=== PATIENT | female | born 1960 | race Caucasian/White ===

== ENCOUNTER 2019-07-15 14:27 | Outpatient (RCR) | payer OTHER, SELFPAY | END 2019-07-27 00:01 | LOC: CT 14:27 | PROVIDERS: Family Provider Family Medicine; Visit Provider Nurse Practitioner Family | DX: M81.0 Age-related osteoporosis without current pathological fracture (principal); J43.2 Centrilobular emphysema | CPT/HCPCS: 71250; 77080 ==

== ENCOUNTER 2020-01-06 14:46 | Outpatient (CLI) | payer OTHER, SELFPAY ==
--- NOTE | 2020-01-06 14:52 | XR_ITS ---
WS: [id number] HIP WITH PELVIS LEFT TECHNIQUE: 3 views of the left hip with pelvis CLINICAL INFORMATION: RADICULOPATHY LUMBAR REGION COMPARISON: December 18, 2018 FINDINGS: Moderate degenerative arthritis left hip with joint space narrowing. No acute fractures. Pelvic phleb oliths. XR/XR hip LT 2-3V wo/w pel* [id number] IMPRESSION: Mild to moderate degenerative arthritis left hip. No acute fractures.
== END 2020-01-06 14:47 | disposition home or self-care (01) ==
LOC: RADWPI 14:49
PROVIDERS: Family Provider Nurse Practitioner Family; PCP Nurse Practitioner Family; Visit Provider Nurse Practitioner Family
DX: M54.16 Radiculopathy, lumbar region (principal); M16.12 Unilateral primary osteoarthritis, left hip
CPT/HCPCS: 73502

== ENCOUNTER → 2020-04-07 11:13 | Outpatient (BNVA) | payer OTHER, SELFPAY | PROVIDERS: Family Provider Nurse Practitioner Family; PCP Nurse Practitioner Family; Visit Provider Nurse Practitioner Family | DX: M25.462 Effusion, left knee (principal); M25.562 Pain in left knee | CPT/HCPCS: 73562 ==

== ENCOUNTER → 2020-11-10 10:49 | Outpatient (BNVA) | payer OTHER, SELFPAY | PROVIDERS: Family Provider Nurse Practitioner Family; PCP Nurse Practitioner Family; Visit Provider Orthopaedic Surgery | DX: Z96.649 Presence of unspecified artificial hip joint (principal); M25.552 Pain in left hip | CPT/HCPCS: 73502 ==

== ENCOUNTER → 2020-11-24 09:37 | Outpatient (BNVA) | payer OTHER, SELFPAY | PROVIDERS: Family Provider Nurse Practitioner Family; PCP Nurse Practitioner Family; Visit Provider Orthopaedic Surgery | DX: Z01.812 Encounter for preprocedural laboratory examination (principal); Z20.822 Contact with and (suspected) exposure to COVID-19 | CPT/HCPCS: 87635 ==

== ENCOUNTER 2020-11-30 11:50 | Observation (INO) | payer OTHER, SELFPAY ==
[2020-11-24 11:11] VITALS: BMI 24.7
--- NOTE | 2020-11-24 11:24 | ANES.PREANE2 ---
Pre-Anesthetic Assessment Pre-Anesthetic Assessment: Height/Weight: Height 1.6 m Weight 63.503 kg Preop Diagnosis: hip pain Proposed Procedure: Operation Date: 11/30/20 09:30 Proposed Procedures p Total Hip Arthroplasty 53872 M87.052(Left) - Yohannes Juan MD Familial anesthetic complications: None Social: Social History: Alcohol and Tobacco Exam: Pre-Anes Outpt Exam: alert, oriented x 3, clear to auscultation bilaterally and regular rate & rhythm Airway: Cervical ROM: WNL MP: 4 Dentition: Full Additional comments: small mouth opening Pulmonary: Pulmonary: COPD CV/HEM: CV/HEM: HTN GI: GI: GERD Musc/skel: Musc/skel: Lower Back Pain and OA/DJD Neuropsych: Neuropsych: Neuropathy (sciatica) Anesthetic Plan: ASA status: 2 Anesthesia: General Risk of > 500 ml blood loss (7ml/kg in children): No PFSH Anesthesia PFSH: Social History Smoking and tobacco status: current every day smoker cigarettes Packs smoked per day: 0.5 Quit status (tobacco): not considering quitting Alcohol intake: current Alcohol intake frequency: holidays/special occasions only History of recent travel: No Current gender identity: Female Female Reproductive History: Spontaneous abortions: No Data Anesthesia Cardiac Studies: No Data to Display
[2020-11-30] VITALS (31 sets, daily range): BP systolic 68–141; BP diastolic 46–95; PULSE 74–89; RESP 12–18; TEMP 36.2–36.8; O2SAT 90–99
[2020-11-30] MEDS: acetaminophen 500 mg Tablet 1000 MG PO ×3 (08:36→23:36)
[2020-11-30] MEDS: CELEcoxib 200 mg Capsule 400 MG PO (08:37)
[2020-11-30] MEDS: oxyCODONE 20 mg ER (12 HR) Tablet PO (08:38)
[2020-11-30] MEDS: gabapentin 300 mg Capsule PO ×2 (08:39→17:31)
[2020-11-30] MEDS: sodium chloride 0.9% 1,000 ML 30 ML IV (08:39)
--- NOTE | 2020-11-30 09:10 | P.ANESUD_ITS ---
Pre-Anesthetic Update Pre-Anesthetic Assessment: Date of Surgery/Procedure: 11/30/20 Preop Randi gnosis: Osteoarthritis left hip Proposed Procedure: Operation Date: 11/30/20 09:35 Proposed Procedures p Total Hip Arthroplasty 29791 M87.052(Left) - Yohannes Juan MD Any changes to Pre-Anesthetic Assessment?: No Last Intake: Intake Last Liquid Date 11/29/20 Last Liquid Time 06:00 Last Solid Date 11/29/20 Last Solid Time 08:00 Vitals: Temperature 98.2 F 11/30/20 08:12 Temperature Source Temporal Artery S can 11/30/20 08:12 Pulse Rate 84 11/30/20 08:12 Respiratory Rate 18 11/30/20 08:12 Blood Pressure 141/95 11/30/20 08:12 Blood Pressure Estrella n 110 11/30/20 08:12 Pulse Oximetry 98 11/30/20 08:12 Oxygen Delivery Me thod 11/30/20 08:12 Exam: Pre-Anes Outpt Exam: alert, oriented x 3, clear to auscultation bilaterally and regular rate & rhythm Cardiac Studies: No Data to Display
--- NOTE | 2020-11-30 09:11 | W.PM.OPSFHP ---
Same Day Surgery H&P Indication for Procedure/HPI DATE OF PROCEDURE: November 30, 2020 CHIEF COMPLAINT/INDICATIONFOR SURGICAL PROCEDURE: 60-year-old female with avascular necrosis of the left hip and severe pain. Previous history of successful right total hip arthroplasty for same diagnosis PREOP DIAGNOSIS: Osteoarthritis left hip PLANNED PROCEDRUE: Operation Date: 11/30/20 09:35 Proposed Procedures p Total Hip Arthroplasty 43426 M87.052(Left) - Yohannes Juan MD Medications/Allergies* Home Medications Medication Instructions Recorded Confirmed Type acetaminophen 300 mg-codeine 30 mg 1 tab PO Q6H PRN 04/07/20 11/30/20 History tablet buspirone 10 mg tablet 5 mg PO BEDTIME 04/07/20 11/30/20 History celecoxib 200 mg capsule 200 mg PO DAILY 04/07/20 11/30/20 History fesoterodine 4 mg tablet,extended 4 mg PO DAILY 04/07/20 11/30/20 History release 24 hr fexofenadine 180 mg tablet 180 mg PO DAILY 04/07/20 11/24/20 History fluoxetine 60 mg tablet 60 mg PO DAILY 04/07/20 11/30/20 History gabapentin 300 mg capsule 300 mg PO BID 04/07/20 11/30/20 History losartan 100 mg tablet 100 mg PO DAILY 04/07/20 11/30/20 History metoprolol succinate 25 mg 25 mg PO DAILY 04/07/20 11/30/20 History tablet,extended release 24 hr pantoprazole 40 mg tablet,delayed 40 mg PO DAILY 04/07/20 11/30/20 History release alendronate 70 mg PO Q7D 11/24/20 11/30/20 History amlodipine 2.5 mg PO BEDTIME 11/24/20 11/30/20 History ketoconazole 1 applic TOPICAL BID 11/24/20 11/24/20 History triamcinolone acetonide 1 applic TOPICAL BID 11/24/20 11/30/20 History umeclidinium-vilanterol [Anoro 1 inh INHALATION DAILY 11/24/20 11/30/20 History Ellipta] Allergies/Adverse Reactions Allergy/AdvReac Type Severity Reaction Status Date / Time No Known Allergies Allergy Verified 11/10/20 10:30 Current Medications: Generic Name Dose Route Start Last Admin Trade Name Freq PRN Reason Stop Dose Admin Sodium Chloride 1,000 mls @ 30 mls/hr 11/30/20 08:15 11/30/20 08:39 Sodium Chloride 0.9% IV 12/01/20 08:14 30 mls/hr .Q24H VANESA Administration Pertinent History/Comorbid Conditions* Social History Smoking and tobacco status: current every day smoker cigarettes Packs smoked per day: 0.5 Quit status (tobacco): not considering quitting Alcohol intake: current Alcohol intake frequency: holidays/special occasions only History of recent travel: No Current gender identity: Female Pertinent Exam Findings alert, oriented x 3, clear to auscultation bilaterally and regular rate & rhythm Recommendations Surgery/Procedure today Coding Level of Care Code Acute 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
[2020-11-30] MEDS: tranexamic acid 1,000 mg/10mL SDV 1000 MG IRRIGATION (10:21)
--- NOTE | 2020-11-30 11:36 | P.OP_ITS ---
Operative Report Date of procedure: November 30, 2020 Pre-op Diagnosis: Avascular necrosis left hip Post-op diagnosis: same Post-op Findings: Same Procedure Done: Left total hip Implants: 1) [place] forty-eight mm ADM acetabular shell 2) Size seven Chelo SecureFit Max stem 3} twenty-eight mm +2.5 femoral head 4} Restorationa ADM X3 insert Pathology: none sent Surgeon: Yohannes Juan Anesthesia: Nerve Block (Spinal anesthesia) Estimated blood loss (mL): 200 Complications: None Findings: Patient had of subchondral collapse of the left humeral head with unstable flaps of superior cartilage. Consistent with avascular necrosis Condition: stable Procedure: The patient was taken to the operating room and anesthesia provided by the anesthesia service. The patient was placed in the lateral position on a beanbag. A timeout was performed. The patient was draped in the usual fashion. A 15 cm long incision was made beginning just proximal to the greater trochanter and extending posteriorly to a point just distal to the trochanter on the posterior border of the trochanter. Dissection was carried down with electrocautery through the subcutaneous fat to the fascia katy which was divided proximally and distally with curved scissors. The anterior two thirds of the gluteus medius and minimus were elevated off the hip with electrocautery. The capsule was divided in a H-like fashion. The hip was dislocated and a neck cut made just above the level of the lesser trochanter. Exposure of the acetabulum was facilitated with the acetabular retractors. Remnants of labrum and peripheral osteophytes were removed with electrocautery and a rongeur. A reamer 2 mm under the size the femoral head was utilized to ream medially to the base of the palm and are. Reaming was then increased in 1 mm intervals until a healthy rim a trabecular bone was encountered. A trial ADM cup was placed and its position marked with electrocautery In the acetabulum. A final was press-fit into place. Attention was then focused on the femur. Sequential reaming was done under power until cortical chatter was encountered. Broaching was then accomplished until a stable broach size was obtained. A trial reduction with the head and neck provided excellent stability. The wound was irrigated with saline and antibiotic solution. The final Chelo SecureFit Max stem was press-fit into place. The femoral head was placed and the hip was reduced. The hip was brought through range of motion and found to be free of impingement and stable. The anterior capsule was reapproximated with 1 Ethibond. The gluteus medius and minimus were repaired through bone with 5 Ethibond and reinforced with 1 Ethibond. The fascial katy was closed with a running 0 Stratafix suture. Deep pelvic tissues were closed with 2-0 Stratafix and the skin with a running 4-0 l Stratafix.
--- NOTE | 2020-11-30 11:47 | XRR_ITS ---
PROCEDURE INFORMATION: Exam: XR Pelvis Exam date and time: 11/30/2020 11:58 AM Age: 60 years old Clinical indication: Device placement; Other: Total hip arthroplasty; Prior surgery; Surgery date: Post-operative (0-2 days) TECHNIQUE: Imaging protocol: XR pelvis. Views: 1 or 2 view. COMPARISON: CR XR hip LT 2-3V wo/w pel* [id number] 11/10/2020 10:55 AM FINDINGS: Bones/joints: Interval left bipolar hip arthroplasty. Prior right bipolar hip arthroplasty. No periprosthetic lucency. No fracture. No dislocation. Soft tissues: Postoperative soft tissue changes present. XR/XR pelvis 1-2V* [id number] IMPRESSION: Postoperative changes.
--- NOTE | 2020-11-30 11:57 | SUR.PHASEI ---
1145 L. PEDAL PULSE PALPATED, CAP REFILL <3 SEC
--- NOTE | 2020-11-30 12:03 | SUR.PHASEI ---
1200 FIRST ICE APPLIED
[2020-11-30] MEDS: sodium chloride 0.9% 1,000 ML 100 ML IV (14:44)
--- NOTE | 2020-11-30 16:28 | PC.RESP ---
Smoking Cessation information sent to patient.
[2020-11-30] MEDS: morphine 4 mg/mL SDV 1 mL 2 MG IVP ×2 (16:42→21:17)
[2020-11-30] MEDS: sennosides-docusate Tablet 2 TAB PO (17:31)
[2020-11-30] MEDS: ketoconazole Cream 15 gm 1 APPLIC TOPICAL (17:39)
[2020-11-30] MEDS: triamcinolone 0.1% cream 15 gm 1 APPLIC TOPICAL (17:39)
--- NOTE | 2020-11-30 17:47 | ANE.PACU2 ---
Inpatient post-anesthesia follow up: Airway intact: Yes Vital signs: Temperature 97.8 F Pulse Rate 82 Respiratory Rate 16 Blood Pressure 110/75 Pulse Oximetry 90 Oxygen Delivery Me thod Room Air Oxygen Flow Rate Fraction of Inspir ed Oxygen Hydration adequate: Yes Nausea and vomiting: No Pain level: 3 Mental status: Baseline
[2020-11-30] MEDS: oxyCODONE 5 mg IR Tab/Cap PO (18:35)
[2020-11-30] MEDS: CELEcoxib 200 mg Capsule PO (20:43)
[2020-11-30] MEDS: BuSPIRONE 10 mg Tablet 5 MG PO (20:43)
[2020-11-30] MEDS: amlodipine 5 mg Tablet 2.5 MG PO (20:44)
[2020-12-01] MEDS: sodium chloride 0.9% 1,000 ML 100 ML IV (01:13)
[2020-12-01 01:17] VITALS: RESP 17
[2020-12-01] MEDS: oxyCODONE 5 mg IR Tab/Cap PO ×2 (01:17→08:49)
[2020-12-01 03:36] LABS: Hemoglobin 12.5 g/dL (11.5-15.3)
[2020-12-01 04:39] VITALS: BP 97/63; PULSE 78; RESP 18; TEMP 36.4; O2SAT 97
[2020-12-01 08:49] VITALS: RESP 18
[2020-12-01] MEDS: sennosides-docusate Tablet 2 TAB PO (08:49)
[2020-12-01] MEDS: fluoxetine 20 mg Capsule 60 MG PO (08:50)
[2020-12-01] MEDS: metoprolol succinate ER (24 HR) 25 mg Tablet PO (08:50)
[2020-12-01] MEDS: pantoprazole DR 40 mg Tablet PO (08:51)
[2020-12-01] MEDS: acetaminophen 500 mg Tablet 1000 MG PO (08:51)
[2020-12-01] MEDS: aspirin 325 mg EC Tablet PO (08:52)
[2020-12-01] MEDS: gabapentin 300 mg Capsule PO (08:52)
[2020-12-01] MEDS: CELEcoxib 200 mg Capsule PO (08:52)
[2020-12-01] MEDS: ketoconazole Cream 15 gm 1 APPLIC TOPICAL (10:22)
--- NOTE | 2020-12-01 13:22 | P.DS_ITS ---
Discharge Providers Date of Admission: 11/30/20 11:50 Date of Discharge: December 01, 2020 Attending Provider at Admission: Yohannes Juan MD Attending Provider at Discharge: Yohannes Juan MD Primary Care Provider: Angela Awad NP Diagnoses at Discharge Discharge Diagnosis (1) Status post left hip replacement: Status: Acute (2) Avascular necrosis of bone of left hip: Status: Resolved Reason for Visit Reason for Visit: hip arthorplasty Hospital Course Hospital Course The patient was admitted after an elective left total hip arthroplasty for avascular necrosis. She did very well postoperatively. By the first postoperat ilya day she was ambulating independently with her walker. Her pain was controlled with oral medications. She has been on aspirin and sequential compression dressings for foot pumps. She remained hemodynamically stable. She was thought stable for discharge Physical Exam Narrative: EXAM NARRATIVE: On the day of discharge the hip incision was clean. The incision was free of drainage. They had no particular swelling about the thigh or distal. No distal neurovascular deficits were noted. Urinary Catheter Management^: [place]: Cath Placed During This Visit: yes Reason for Continuing Indwelling Catheter: Perioperative Use in Selected Surgeries Urinary Catheter Date of Insertion: 11/30/20 Urinary Catheter Time of Insertion: 09:45 Discharge Data Data Completed and Pending: Completed Studies During Hospitalization Category Date Time Status XR pelvis 1-2V* 7 2170 Routine Exams 11/30/20 11:47 Completed Labs from last 24 hours 12/01/20 03:10 Hgb 12.5 Vitals: Last Vital Signs Temp 97.6 F 12/01/20 04:39 Pulse 78 12/01/20 04:39 Resp 18 12/01/20 08:49 BP 97/63 12/01/20 04:39 Pulse Ox 97 12/01/20 04:39 Discharge Plan Discharge Patient Disposition: Home Condition: Stable Prescriptions: New oxycodone 5 mg Tablet 5 mg PO Q4H PRN (Reason: Moderate Pain) 7 Days Qty: 40 RF: 0 acetaminophen 500 mg Tablet 1,000 mg PO Q8H 14 Days Qty: 84 RF: 0 aspirin 325 mg Tablet,Delayed Release (Dr/Ec) 325 mg PO DAILY 30 Days Qty: 30 RF: 0 Continued fluoxetine 60 mg tablet 60 mg PO DAILY RF: 0 fexofenadine [[place] Allergy] 180 mg tablet 180 mg PO DAILY RF: 0 pantoprazole [Protonix] 40 mg tablet,delayed release (DR/EC) 40 mg PO DAILY RF: 0 metoprolol succinate [Toprol XL] 25 mg tablet extended release 24 hr 25 mg PO DAILY RF: 0 Toviaz 4 mg tablet extended release 24 hr 4 mg PO DAILY RF: 0 losartan 100 mg tablet 100 mg PO DAILY RF: 0 gabapentin 300 mg capsule 300 mg PO BID RF: 0 buspirone 10 mg tablet 5 mg PO BEDTIME RF: 0 triamcinolone acetonide 0.1 % cream 1 applic TOPICAL BID RF: 0 ketoconazole 2 % cream 1 applic TOPICAL BID RF: 0 amlodipine 2.5 mg tablet 2.5 mg PO BEDTIME RF: 0 alendronate 70 mg tablet 70 mg PO Q7D RF: 0 Anoro Ellipta 62.5-25 mcg/actuation blister with device 1 inh INHALATION DAILY RF: 0 Discontinued acetaminophen-codeine [Tylenol-Codeine #3] 300-30 mg tablet 1 tab PO Q6H PRN (Reason: Pain) RF: 0 celecoxib [Celebrex] 200 mg capsule 200 mg PO DAILY RF: 0 Discharge Orders: Discharge Order (Routine); Ordered 12/01/20 Ordered By: Yohannes Juan Referrals: Yohannes Juan MD [Physician] - 12/15/20 1:15 pm Discharge Diet: Advance as tolerated Discharge Activity: Limit activity as instructed Activity Restrictions/Additional Instructions: Okay to shower. No soaking incision in tub Apply FirstIce up to 20 min/hr for pain and swelling Take Celebrex twice a day for the next 15 days for pain , discontinue other anti-inflammatories Take Tylenol 500mg (up to 2 tabs) 3 times a day for mild pain take oxycodone for breakthrough pain. Exercises per physical therapy. May weight-bear as tolerated on total hip arthroplasty Discharge Attestations Time Spent in Discharge Care*: other Quality Metrics Clinical Quality Measures During this hospital stay, did patient experience: None Coding Level of Care Code Acute [facility] note Diagnoses Status post left hip replacement Z96.642 Avascular necrosis of bone of left hip M87.052
[2020-12-01 14:14] VITALS: RESP 18
== END 2020-12-01 14:20 | disposition home or self-care (01) ==
LOC: MEDSURG 13:51
PROVIDERS: Admitting Provider Orthopaedic Surgery; PCP Nurse Practitioner Family; Visit Provider Orthopaedic Surgery
PROC: (CPT 27130; principal; 2020-11-30 09:15)
DX: M87.052 Idiopathic aseptic necrosis of left femur (principal); M16.12 Unilateral primary osteoarthritis, left hip; J44.9 Chronic obstructive pulmonary disease, unspecified; I10 Essential (primary) hypertension; K21.9 Gastro-esophageal reflux disease without esophagitis; G62.9 Polyneuropathy, unspecified; F17.210 Nicotine dependence, cigarettes, uncomplicated
CPT/HCPCS: 27130; 36415; 51702; 72170; 85018; 97116; 97161; 97165; 97166; 97530; C1776; G0378; J0690; J1580; J2250; J2270; J2370; J2405; J2704; J3490; J7030

== ENCOUNTER 2020-12-08 06:00 | Outpatient (RCR) | payer OTHER, SELFPAY | END 2020-12-25 23:59 | disposition home or self-care (01) | LOC: MPT 06:00 | PROVIDERS: PCP Nurse Practitioner Family; Referring Provider Orthopaedic Surgery; Visit Provider Orthopaedic Surgery | DX: Z96.642 Presence of left artificial hip joint (principal) | CPT/HCPCS: 97110; 97116; 97140; 97161 ==

== ENCOUNTER 2020-12-15 14:31 | Outpatient (CLI) | payer OTHER, SELFPAY ==
--- NOTE | 2020-12-15 14:15 | USCV_ITS ---
Yvette Garrett Age: 60 Gender: F : 1960 Exam Date: 12/15/2020 14:59 Ordering Phys: Yohannes Juan MD Technologist: EMELY Exam Location: [facility] [place] Indication: RECENT LT HIP SURGERY HISTORY: Recent Lt Hip Surgery PROCEDURES: Venous duplex imaging was performed in only the left lower extremity. The following venous structures were evaluated: common femoral vein, profunda vein, proximal portion of the greater saphenous vein, superficial femoral vein, and the popliteal vein. In addition, the posterior tibial and peroneal trunk were evaluated. Serial compression, augmentation maneuvers, and spectral Doppler flow evaluation were performed. FINDINGS: No DVT seen in any vessel examined CONCLUSIONS No evidence of left lower extremity DVT. Riki Patterson MD (Electronically Signed) Final Date: 15 December 2020 17:28 S
== END 2020-12-15 14:32 | disposition home or self-care (01) ==
LOC: RAD 14:35
PROVIDERS: PCP Nurse Practitioner Family; Visit Provider Orthopaedic Surgery
DX: Z96.642 Presence of left artificial hip joint (principal)
CPT/HCPCS: 93971

== ENCOUNTER 2020-12-26 06:00 | Outpatient (RCR) | payer OTHER, SELFPAY | END 2021-01-25 23:59 | disposition home or self-care (01) | LOC: MPT 06:00 | PROVIDERS: PCP Nurse Practitioner Family; Referring Provider Orthopaedic Surgery; Visit Provider Orthopaedic Surgery | DX: Z47.1 Aftercare following joint replacement surgery (principal); Z96.642 Presence of left artificial hip joint | CPT/HCPCS: 97110; 97116 ==

== ENCOUNTER → 2021-01-12 10:30 | Outpatient (BNVA) | payer OTHER, SELFPAY | PROVIDERS: PCP Nurse Practitioner Family; Visit Provider Orthopaedic Surgery | DX: Z96.642 Presence of left artificial hip joint (principal); M87.052 Idiopathic aseptic necrosis of left femur | CPT/HCPCS: 73502 ==

== ENCOUNTER 2024-07-13 10:00 | Emergency (ER) | payer OTHER, SELFPAY ==
[2024-07-13] VITALS (9 sets, daily range): BP systolic 149–163; BP diastolic 98–119; PULSE 88–116; RESP 16; TEMP 36.7; O2SAT 99–100; BMI 21.6
--- NOTE | 2024-07-13 10:21 | ED_ITS ---
HPI - General Adult 2 General: Chief complaint: General Medical Stated complaint: confusion Time Seen by Provider: 07/13/24 10:05 History of Present Illness: Patient presents to the ER for having hallucinations for the last 3 days. Patient was seen at [facility] approximately 3 days ago was given fluids for dehydration. She says this helped a little bit but since then she has started not feeling well again and just feeling rundown. Patient discharge summary from [facility] said nausea vomiting she had lab work and a CT scan of her abdomen pelvis with ultrasound of right upper quadrant,. The results were not in the paperwork. But she was started on Reglan. Related Data Home Medications Medication Instructions Recorded Confirmed fesoterodine 4 mg tablet,extended 4 mg PO DAILY 04/07/20 07/13/24 release 24 hr (Toviaz) alendronate 70 mg tablet 70 mg PO Q7D 11/24/20 07/13/24 albuterol sulfate 90 mcg/actuation 2 puff inhalation Q6H 07/13/24 07/13/24 aerosol inhaler budesonide 160 mcg-glycopyr 9 2 inh inhalation BID 07/13/24 07/13/24 mcg-formot 4.8 mcg/actuation HFA inhaler (Breztri Aerosphere) buspirone 5 mg tablet 5 mg PO TID 07/13/24 07/13/24 celecoxib 200 mg capsule 200 mg PO BID 07/13/24 07/13/24 duloxetine 60 mg capsule,delayed 60 mg PO DAILY 07/13/24 07/13/24 release furosemide 20 mg tablet 20 mg PO DAILY 07/13/24 07/13/24 lurasidone 20 mg tablet 20 mg PO DAILY 07/13/24 07/13/24 metoprolol succinate 50 mg 50 mg PO DAILY 07/13/24 07/13/24 tablet,extended release 24 hr montelukast 10 mg tablet 10 mg PO QPM 07/13/24 07/13/24 ondansetron 4 mg disintegrating 4 mg PO Q6H 07/13/24 07/13/24 tablet pantoprazole 40 mg tablet,delayed 40 mg PO BID 07/13/24 07/13/24 release potassium chloride 20 mEq 20 meq PO DAILY 07/13/24 07/13/24 tablet,extended release roflumilast 500 mcg tablet 500 mcg PO DAILY 07/13/24 07/13/24 valsartan 80 mg tablet 80 mg PO DAILY 07/13/24 07/13/24 Previous Rx's Medication Instructions Recorded ciprofloxacin HCl 500 mg tablet 500 mg PO Q12H #20 tabs 07/13/24 potassium chloride 20 mEq 20 meq PO BID #14 tabs 07/13/24 tablet,extended release Allergies Allergy/AdvReac Type Severity Reaction Status Date / Time No Known Allergies Allergy Verified 01/12/21 10:23 Review of Systems 2 General: Reports: 10 or more systems reviewed and unremarkable except in HPI and below PFSH ED 2 PFSH: Social History Smoking and tobacco/nicotine status: current every day tobacco/nicotine user cigarettes Packs smoked per day: 0.5 Quit status (tobacco/nicotine): not considering quitting Alcohol intake: current Alcohol intake frequency: holidays/special occasions only Substance/Drug Use: never Current gender identity: Female Female Reproductive History: Spontaneous abortions: No Physical Exam 2 Const: COMMON NORMALS: no acute distress, average body habitus, patient oriented x3, no limitations, healthy appearing, alert and well nourished HENMT: COMMON NORMALS: normocephalic, atraumatic, hearing grossly normal bilaterally, external ears normal, Normal external nose present and moist oral mucous membranes HEAD & SCALP: normocephalic and atraumatic NOSE: Normal external nose present EXTERNAL EAR: Yes external ears normal Neck/C-Spine: COMMON NORMALS: no JVD Chest: COMMONS NORMALS: normal inspection of the chest and normal palpation of entire chest wall Resp: COMMON NORMALS: normal respiratory effort, No retractions, No use of accessory muscles and clear to auscultation bilaterally AUSCULTATION: clear to auscultation bilaterally Cardio: COMMON NORMALS: no JVD, regular rate, regular rhythm, S1 normal heart sound present, S2 normal heart sound present, No gallops present (Cardio), No clicks present (Cardio), No murmurs present (Cardio) and No rub (Cardio) R ATE: regular rate RHYTHM: regular rhythm HEART SOUNDS: S1 normal heart sound present and S2 normal heart sound present GI: COMMON NORMALS: Normal to inspection, nondistended, normoactive bowel sounds present, Soft to palpation, non-tender, No hepatosplenomegaly present and no masses PALPATION: Yes Soft to palpation and Yes No hepatosplenomegaly present Neuro: COMMON NORMALS: patient oriented x3 SENSORIUM/ORIENTATION: Yes alert Course 2 Vital Signs: Vital signs: Vital Signs Temperature 98.0 F 07/13/24 10:01 Pulse Rate 116 H 07/13/24 13:00 Respiratory Rate 16 07/13/24 10:01 Blood Pressure 149/99 07/13/24 12:30 Pulse Oximetry 99 07/13/24 13:00 MDM - General Adult Medical Decision Making Number prevailed white count 9.6, hemoglobin 11.5, BUN/creatinine of 9 and 0.7, potassium of 2.7 lipase 40, magnesium 1.7, UA greater than 100 white cells 3+ leukocyte esterase, patient was given 40 mEq of oral potassium and Cipro 500 mg p.o. Patient be discharged on supplemental potassium and Cipro. Medical Records I reviewed the patient's medical records. Lab Data I reviewed the patient's lab results. 07/13/24 10:45 07/13/24 10:45 Laboratory Results WBC 9.67 10^3/uL (3.29-11.43) 07/13/24 10:45 RBC 3.43 10^6/uL (3.85-5.65) L 07/13/24 10:45 Hgb 11.50 g/dL (11.27-16.99) 07/13/24 10:45 Hct 33.3 % (36-47) L 07/13/24 10:45 MCV 97.1 fl (85-98) 07/13/24 10:45 MCH 33.5 pg (27-33) H 07/13/24 10:45 MCHC 34.5 g/dL (30-55) 07/13/24 10:45 RDW 14.8 % (12.1-15.1) 07/13/24 10:45 Plt Count 333 10^3/cmm (157-399) 07/13/24 10:45 MPV 9.7 fL (7.4-10.4) 07/13/24 10:45 Neut % (Auto) 73.4 % 07/13/24 10:45 Lymph % (Auto) 19.1 % 07/13/24 10:45 Donley % (Auto) 6.3 % 07/13/24 10:45 Eos % (Auto) 0.4 % 07/13/24 10:45 Baso % (Auto) 0.4 % 07/13/24 10:45 Neut # (Auto) 7.09 10^3/uL (1.8-7.7) 07/13/24 10:45 Lymph # (Auto) 1.9 10^3/uL (0.8-4.8) 07/13/24 10:45 Donley # (Auto) 0.6 10^3/uL (0.2-0.9) 07/13/24 10:45 Eos # (Auto) 0.0 10^3/uL (0.0-0.8) 07/13/24 10:45 Baso # (Auto) 0.0 10^3/uL (0.0-0.1) 07/13/24 10:45 Nucleated RBC % (auto) 0 % 07/13/24 10:45 Nucleated RBCs # 0.0 /100WBC 07/13/24 10:45 Sodium 132 mmol/L (136-145) L 07/13/24 10:45 Potassium 2.7 mmol/L (3.5-5.1) L* 07/13/24 10:45 Chloride 93 mmol/L (98-107) L 07/13/24 10:45 Carbon Dioxide 28 mmol/L (22-29) 07/13/24 10:45 Anion Gap 13.7 (5-19) 07/13/24 10:45 BUN 9 mg/dL (8-23) 07/13/24 10:45 Creatinine 0.7 mg/dL (0.5-0.9) 07/13/24 10:45 GFR Calculation 84.2 mL/min (90-130) L 07/13/24 10:45 Glucose 113 mg/dL (65-115) 07/13/24 10:45 Calculated Osmolality 273 mOsm/kg (285-295) L 07/13/24 10:45 Calcium 9.0 mg/dL (8.5-10.5) 07/13/24 10:45 Magnesium 1.7 mg/dL (1.7-2.3) 07/13/24 10:45 Total Bilirubin 0.7 mg/dL (0.15-1.2) 07/13/24 10:45 AST 16 U/L (0-32) 07/13/24 10:45 ALT 11 U/L (0-33) 07/13/24 10:45 Alkaline Phosphatase 136 U/L (35-105) H 07/13/24 10:45 Total Protein 5.4 g/dL (6.6-8.7) L 07/13/24 10:45 Albumin 3.2 g/dL (3.5-5.2) L 07/13/24 10:45 Globulin 2.2 g/dL (1.3-4.6) 07/13/24 10:45 Lipase 40 U/L (13-60) 07/13/24 10:45 Urine Color Schuyler (Yellow) A 07/13/24 13:21 Urine Appearance Cloudy (CLEAR) A 07/13/24 13:21 Urine pH 6.5 (5-7) 07/13/24 13:21 Ur Specific [place] 1.020 (1.005-1.030) 07/13/24 13:21 Urine Protein 1+ (Negative) A 07/13/24 13:21 Urine Glucose (UA) Negative (Normal) 07/13/24 13:21 Urine Ketones Negative (Negative) 07/13/24 13:21 Urine Blood Negative (Negative) 07/13/24 13:21 Urine Nitrate Negative (Negative) 07/13/24 13:21 Urine Bilirubin 1+ (Negative) H 07/13/24 13:21 Urine Urobilinogen 4.0 mg/dL (Negative) H 07/13/24 13:21 Ur Leukocyte Esterase 3+ (Negative) A 07/13/24 13:21 Urine RBC 0-2 /hpf (0-2) 07/13/24 13:21 Urine WBC 51-100 /hpf (0-5) H 07/13/24 13:21 Ur Squamous Epith Cells 6-10 /hpf (0-5) 07/13/24 13:21 Amorphous Sediment Not Reportable 07/13/24 13:21 Urine Bacteria Exceeds /hpf (NONE) 07/13/24 13:21 Hyaline Casts 2.87 /lpf 07/13/24 13:21 All radiology interpretation(s) finalized by discharge Discharge Plan Discharge Patient Disposition: Home Clinical Impression: Acute lower urinary tract infection, Acute hypokalemia Condition: Stable Prescriptions: New ciprofloxacin HCl 500 mg tablet 500 mg PO Q12H Qty: 20 0RF potassium chloride 20 mEq tablet extended release 20 meq PO BID Qty: 14 0RF No Action Toviaz 4 mg tablet extended release 24 hr 4 mg PO DAILY alendronate 70 mg tablet 70 mg PO Q7D celecoxib 200 mg capsule 200 mg PO BID buspirone 5 mg tablet 5 mg PO TID metoprolol succinate 50 mg tablet extended release 24 hr 50 mg PO DAILY valsartan 80 mg tablet 80 mg PO DAILY montelukast 10 mg tablet 10 mg PO QPM furosemide 20 mg tablet 20 mg PO DAILY albuterol sulfate 90 mcg/actuation HFA aerosol inhaler 2 puff INHALATION Q6H ondansetron 4 mg tablet,disintegrating 4 mg PO Q6H duloxetine 60 mg capsule,delayed release(DR/EC) 60 mg PO DAILY roflumilast 500 mcg tablet 500 mcg PO DAILY lurasidone 20 mg tablet 20 mg PO DAILY potassium chloride 20 mEq tablet extended release 20 meq PO DAILY Breztri Aerosphere 160-9-4.8 mcg/actuation HFA aerosol inhaler 2 inh INHALATION BID pantoprazole 40 mg tablet,delayed release (DR/EC) 40 mg PO BID Discharge Orders: Discharge ED (Routine); Ordered 07/13/24 Ordered By: Roel Olvera Patient Instructions: Hypokalemia (ED), Urinary Tract Infection - Women Activity Restrictions/Additional Instructions: Your evaluation ER showed you have a significant urinary tract infection. Ciprofloxacin an antibiotic was sent into the pharmacy for this it also showed you have significant hypokalemia or low potassium. Another prescription of potassium was sent in to replace this. Please follow-up with your family practice doctor within the next 7 to 10 days for recheck of your potassium and urinalysis. 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
--- NOTE | 2024-07-13 10:30 | PC.PHAR ---
patient unsure of meds she brought a few of them with her but not all of them, called [facility] to send me her med list will follow up brittany
[2024-07-13] MEDS: sodium chloride 0.9% 1,000 ML 999 ML IV (10:32)
[2024-07-13 10:50] LABS: Basophils % 0.4 %; Eosinophils % 0.4 %; Hematocrit 33.3 % (36-47); Lymphocytes # 1.9 10^3/uL (0.8-4.8); Lymphocytes % 19.1 %; Mean Corpuscular HGB Conc 34.5 g/dL (30-55); Mean Corpuscular Hemoglobin 33.5 pg (27-33); Mean Corpuscular Volume 97.1 fl (85-98); Mean Platelet Volume 9.7 fL (7.4-10.4); Monocytes # 0.6 10^3/uL (0.2-0.9); Monocytes % 6.3 %; Neutrophils # 7.09 10^3/uL (1.8-7.7); Neutrophils % 73.4 %; Nucleated Red Blood Cells % 0 %; Platelet Count 333 10^3/cmm (157-399); Red Blood Count 3.43 10^6/uL (3.85-5.65); Red Cell Distribution Width 14.8 % (12.1-15.1); White Blood Count 9.67 10^3/uL (3.29-11.43)
[2024-07-13 11:08] LABS: Alanine Aminotransferase 11 U/L (0-33); Albumin Level 3.2 g/dL (3.5-5.2); Alkaline Phosphatase 136 U/L (35-105); Anion Gap 13.7 (5-19); Aspartate Amino Transferase 16 U/L (0-32); Blood Urea Nitrogen 9 mg/dL (8-23); Carbon Dioxide 28 mmol/L (22-29); Chloride 93 mmol/L (98-107); Creatinine Clr Calc Pharmacy 71.3692; Globulin 2.2 g/dL (1.3-4.6); Glomerular Filtration Rate 84.2 mL/min (90-130); Glucose 113 mg/dL (65-115); Lipase 40 U/L (13-60); Magnesium 1.7 mg/dL (1.7-2.3); Osmolality Calculated 273 mOsm/kg (285-295); Sodium 132 mmol/L (136-145); Total Bilirubin 0.7 mg/dL (0.15-1.2); Total Protein 5.4 g/dL (6.6-8.7)
[2024-07-13 11:10] LABS: Potassium 2.7 mmol/L (3.5-5.1)
[2024-07-13] MEDS: potassium chloride ER 20 mEq Tablet 40 MEQ PO (11:22)
[2024-07-13 13:39] LABS: Bilirubin Urine 1+ (Negative); Blood Urine Negative (Negative); Glucose Urine UA Negative (Normal); Ketones Urine Negative (Negative); Leukocyte Esterase Urine 3+ (Negative); Nitrate Urine Negative (Negative); Protein Urine 1+ (Negative); Urine Appearance Cloudy (CLEAR); pH Urine 6.5 (5-7)
[2024-07-13 13:44] LABS: Add Urine Microscopic? YES; Bacteria Urine EXCEEDS /hpf; Hyaline Casts Urine 2.87 /lpf; RBC Urine 0-2 /hpf (0-2); WBC Urine 51-100 /hpf (0-5)
[2024-07-13 13:46] LABS: Urine Color Orange (Yellow)
[2024-07-13 13:47] LABS: Add Urine Culture? Yes
[2024-07-13] MEDS: ciprofloxacin 500 mg Tablet PO (14:24)
== END 2024-07-13 14:28 | disposition home or self-care (01) ==
PROVIDERS: Emergency Provider Emergency Medicine
DX: N39.0 Urinary tract infection, site not specified (principal); E87.6 Hypokalemia; F17.210 Nicotine dependence, cigarettes, uncomplicated
CPT/HCPCS: 36415; 80053; 81001; 83690; 83735; 85025; 87077; 87086; 87186; 96360; 99284; J7030